=== PATIENT | female | born 1980 | race Caucasian/White ===

== ENCOUNTER 2016-08-28 18:53 | Emergency (ER) | payer OTHER ==
--- NOTE | 2016-08-28 20:56 | ED NURSING NOTES ---
Clinical Report - Nurses [facility] [place] [address] 08/28/2016 18:53 Patient: LILLI VAZQUEZ TRIAGE Triage time 1950. Acuity: LEVEL 3. Chief Complaint: SKIN LESION. --20: Tj Bass R.N. 19:53 08/28/16. BP: 118/82. HR: 91. RR: 16. O2 saturation: 100%. Temp: 97.7 F. Pain level now 03/26. --20:01 Tj Bass R.N. Weight: 52.1 kg stated. Height/Length: 65 inches Per Patient. BMI: 19.1. --20:01 Tj Bass R.N. Medications Tramadol HCL Oral. --19:56 Tj Bass R.N. Allergies Sulfa Drugs. --19:56 Tj Bass R.N. History Arrived by private vehicle. Historian: patient. Unaccompanied. Location - neck and right leg. Onset. (about 1 weeks). It is described as painful. ( nausea with vomitting). 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 SOCIAL HX: Heavy tobacco smoker- 1 pack per day. History of heavy IV drug use: heroin. Recently used drugs days ago. FALL RISK ASSESSMENT: Fall risk assessment completed. No fall risk identified. NUTRITIONAL RISK ASSESSMENT: The nutritional risk assessment revealed no deficiencies. FUNCTIONAL ASSESSMENT: Functional assessment: no impairments noted. LEARNING NEEDS ASSESSMENT: The learning needs assessment revealed no barriers. SKIN INTEGRITY ASSESSMENT: Skin integrity risk assessment completed. No skin integrity risk identified. --20:01 Tj Bass R.N. Interventions ID band on patient. --20:01 Tj Bass R.N. PHYSICAL ASSESSMENT Ambulatory to room. GENERAL / NEURO / PSYCH: Alert. The patient does not appear to be in acute distress. Oriented X 4. HEENT: Pupils equal, round and reactive to light. Mucous membranes are pink. RESPIRATORY: Respirations not labored. Breath sounds within normal limits. CVS: Capillary refill less than 2 seconds. Pulses within normal limits. GI / : Abdomen nontender. SKIN: Skin is intact, warm, dry and non-tender. Normal skin turgor. No skin rash. --20:01 Tj Bass R.N. ( pt states she is in full heroine withdrawal at this time. pt further states she is homeless at this time.). --20:05 Tj Bass R.N. NURSING PROGRESS NOTES Patient gowned. Head of bed elevated. Reassurance given. Patient identifiers checked. Call light placed in reach. Bed placed in lowest position. Brakes of bed on. --20:02 Tj Bass R.N. 20:56 08/28/2016 Clindamycin PO 300 mg given. Allergies verified and confirmed 5 rights. --20:56 Tj Bass R.N. 20:56 08/28/2016 Phenergan (Promethazine HCl) PO 25 mg given. Allergies verified, confirmed 5 rights and sedative warning given to the patient. --20:56 Tj Bass R.N. 20:56 08/28/2016 Zofran ODT (Ondansetron) PO 4 mg given. Allergies verified and confirmed 5 rights. --20:57 Tj Bass R.N. DISPOSITION / DISCHARGE Departure time: 21:18. ( Pt stated that she [facility] not [facility] out the bugs in her neck and legs. Pt stated "I am sick of this shit, the bits are brown recluses. Pt refused vs. She was alert and oriented x 4.). Discharge instructions provided and reviewed with the patient. Reviewed warnings. Reviewed medication(s). Treatments reviewed. Patient verbalized understanding. Written instructions provided in Persian. The patient was discharged by the physician assistant quality manager. She was discharged home and unaccompanied at time of discharge. She left the Emergency Department ambulatory and via private vehicle. Patient driving. --21:18 Wallace Cevallos R.N. Departure time: 21:19. --21:19 Wallace Cevallos R.N. Locked/Released at 08/28/2016 21:20 by Wallace Cevallos R.N.
--- NOTE | 2016-08-28 20:56 | ED ORDER SUMMARY ---
..... Patient: LILLI VAZQUEZ OrderSheet [facility] VisitID: [id number] [place] [address] 36y, F Registration Date/Time: 08/28/2016 ORDER SHEET Weight: 52.1 kg (stated) Allergies: Sulfa Drugs GENERAL ORDERS: MEDICATION ORDERS: Zofran ODT PO 4 mg (NOW) (20:20 08/28/2016 EKoroleva P.A.-C) (20:57 MICHAELullard R.N.) Phenergan PO 25 mg (HIGH ALERT MEDICATION, NOW) (20:20 08/28/2016 EKoroleva P.A.-C) (20:56 JBhernandoard R.N.) Clindamycin PO 300 mg (NOW) (20:20 08/28/2016 EKoroleva P.A.-C) (20:56 JBullard R.N.) IV FLUIDS: ORDER SHEET NOTES: [Electronically signed by Wallace Cevallos R.N. (21:20 08/28/2016)] [Electronically signed by Ivana Hyatt PVinicioAVinicio-C (23:08/28/2016)] [Electronically locked/signed by Wallace Cevallos R.N. (21:20 08/28/2016)]
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
--- NOTE | 2016-08-28 20:56 | ED ORDER SUMMARY ---
..... Patient: LILLI VAZQUEZ OrderSheet [facility] VisitID: [id number] [place] [address] 36y, F Registration Date/Time: 08/28/2016 ORDER SHEET Weight: 52.1 kg (stated) Allergies: Sulfa Drugs GENERAL ORDERS: MEDICATION ORDERS: Zofran ODT PO 4 mg (NOW) (20:20 08/28/2016 EKoroleva P.A.-C) (20:57 MICHAELullard R.N.) Phenergan PO 25 mg (HIGH ALERT MEDICATION, NOW) (20:20 08/28/2016 EKoroleva P.A.-C) (20:56 JBhernandoard R.N.) Clindamycin PO 300 mg (NOW) (20:20 08/28/2016 EKoroleva P.A.-C) (20:56 JBullard R.N.) IV FLUIDS: ORDER SHEET NOTES: [Electronically signed by Wallace Cevallos R.N. (21:20 08/28/2016)] [Electronically signed by Ivana Hyatt PVinicioAVinicio-C (23:08/28/2016)] [Electronically locked/signed by Wallace Cevallos R.N. (21:20 08/28/2016)]
--- NOTE | 2016-08-28 20:56 | ED NURSING NOTES ---
Clinical Report - Nurses [facility] [place] [address] 08/28/2016 18:53 Patient: LILIL VAZQUEZ TRIAGE Triage time 1949. Acuity: LEVEL 3. Chief Complaint: SKIN LESION. --20: Tj Bass R.N. 19:53 08/28/16. BP: 118/82. HR: 91. RR: 16. O2 saturation: 100%. Temp: 97.7 F. Pain level now 03/26. --20:01 Tj Bass R.N. Weight: 52.1 kg stated. Height/Length: 65 inches Per Patient. BMI: 19.1. --20:01 Tj Bass R.N. Medications Tramadol HCL Oral. --19:56 Tj Bass R.N. Allergies Sulfa Drugs. --19:56 Tj Bass R.N. History Arrived by private vehicle. Historian: patient. Unaccompanied. Location - neck and right leg. Onset. (about 1 weeks). It is described as painful. ( nausea with vomitting). 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 SOCIAL HX: Heavy tobacco smoker- 1 pack per day. History of heavy IV drug use: heroin. Recently used drugs days ago. FALL RISK ASSESSMENT: Fall risk assessment completed. No fall risk identified. NUTRITIONAL RISK ASSESSMENT: The nutritional risk assessment revealed no deficiencies. FUNCTIONAL ASSESSMENT: Functional assessment: no impairments noted. LEARNING NEEDS ASSESSMENT: The learning needs assessment revealed no barriers. SKIN INTEGRITY ASSESSMENT: Skin integrity risk assessment completed. No skin integrity risk identified. --20:01 Tj Bass R.N. Interventions ID band on patient. --20:01 Tj Bass R.N. PHYSICAL ASSESSMENT Ambulatory to room. GENERAL / NEURO / PSYCH: Alert. The patient does not appear to be in acute distress. Oriented X 4. HEENT: Pupils equal, round and reactive to light. Mucous membranes are pink. RESPIRATORY: Respirations not labored. Breath sounds within normal limits. CVS: Capillary refill less than 2 seconds. Pulses within normal limits. GI / : Abdomen nontender. SKIN: Skin is intact, warm, dry and non-tender. Normal skin turgor. No skin rash. --20:01 Tj Bass R.N. ( pt states she is in full heroine withdrawal at this time. pt further states she is homeless at this time.). --20:05 Tj Bass R.N. NURSING PROGRESS NOTES Patient gowned. Head of bed elevated. Reassurance given. Patient identifiers checked. Call light placed in reach. Bed placed in lowest position. Brakes of bed on. --20:02 Tj Bass R.N. 20:56 08/28/2016 Clindamycin PO 300 mg given. Allergies verified and confirmed 5 rights. --20:56 Tj Bass R.N. 20:56 08/28/2016 Phenergan (Promethazine HCl) PO 25 mg given. Allergies verified, confirmed 5 rights and sedative warning given to the patient. --20:56 Tj Bass R.N. 20:56 08/28/2016 Zofran ODT (Ondansetron) PO 4 mg given. Allergies verified and confirmed 5 rights. --20:57 Tj Bass R.N. DISPOSITION / DISCHARGE Departure time: 21:18. ( Pt stated that she is going to [facility] for not taking out the bugs in her neck and legs. Pt stated "I am sick of this shit, the bits are brown recluses. Pt refused vs. She was alert and oriented x 4.). Discharge instructions provided and reviewed with the patient. Reviewed warnings. Reviewed medication(s). Treatments reviewed. Patient verbalized understanding. Written instructions provided in French. The patient was discharged by the physician speech language pathology assistant. She was discharged home and unaccompanied at time of discharge. She left the Emergency Department ambulatory and via private vehicle. Patient driving. --21:18 Wallace Cevallos R.N. Departure time: 21:19. --21:19 Wallace Cevallos R.N. Locked/Released at 08/28/2016 21:20 by Wallace Cevallos R.N.
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
--- NOTE | 2016-08-28 23:01 | ED DISCHARGE INSTRUCTIONS ---
Patient: LILLI VAZQUEZ General Instructions [facility] VisitID: [id number] [place] [address] 36y, F Registration Date/Time: 08/28/2016 Cellulitis of the right lower leg and left lower leg. INSTRUCTIONS Prescription Medications: Zofran (orally disintegrating tablets) 4 mg: take 1 orally every 6 hours for 3 days as needed for nausea. Dispense ten (10). No refill. Substitution is permissible. Phenergan 12.5 mg tablets: take 1 orally every 6 hours as needed for nausea or vomiting. Dispense ten (10). No refill. Substitution is permissible Clindamycin 300 mg: take 1 capsule orally every 6 hours for 7 days. No refills. Bactroban 2% ointment: apply small amount to affected area three times daily for 5 days. Dispense twenty-two (22) grams. No refills. Substitution is permissible. Follow-up: Follow up with your doctor as needed. ADDITIONAL INFORMATION Cellulitis You have an infection of the skin known as cellulitis. This usually starts with a scrape, cut, insect bite, blister or other opening in the skin which becomes infected. This is a serious condition. It must be watched closely to be sure the infection is not spreading. With antibiotic treatment, the size of the red area will gradually shrink in size until the skin returns to normal. This will take 7-10 days. The red area should never increase in size once the antibiotic medicine has been started. Occasionally, an infection will be resistant to one antibiotic and another one will have to be used. Home Care: 1) Limit the use of the affected part, since excess movement can cause the infection to spread. 2) If the infection is on your leg, walk as little as possible during the first few days of the treatment. Keep your leg elevated while sitting. This will reduce swelling. 3) Take all of the antibiotic medicine exactly as directed until it is gone. Be careful not to miss any doses, especially during the first seven days. Follow Up with your doctor or this facility as directed. Check the infected area daily for the warning signs listed below. Get Prompt Medical Attention if any of the following occur: -- Spreading area of redness -- Increasing swelling or pain -- Appearance of pus or drainage -- Fever over 100.4 F (38.0 C) oral, or over 101.4 F (38.6 C) rectal, after two days on antibiotics Staph Infection (MRSA) "Staph" is the short name for the common bacteria called "staphylococcus aureus". Staph bacteria are often present on the skin without causing an infection. If it gets under the skin an infection occurs. This causes redness, tenderness, swelling and sometimes fluid drainage. MRSA stands for "Methicillin-Resistant Staph Aureus". Unlike a common staph infection, MRSA bacteria are resistant to the usual antibiotics and harder to treat. Also, MRSA is more toxic than common staph bacteria. It can spread quickly throughout the body and cause a life-threatening illness. MRSA is spread to others by direct physical contact with the bacteria. MRSA can also be transmitted from items contaminated by a person who has the bacteria, such as bandages, towels, bed sheets, or sports equipment. It is not spread through the air. Once you have a MRSA skin infection, you are at risk of having it recur in the future. If MRSA infection is suspected, the doctor may take a wound culture to confirm the diagnosis. Any abscess will be drained. One or sometimes two antibiotics that work against MRSA will be prescribed. Home Care: 1) Take any antibiotics prescribed exactly as directed until they are gone. 2) Follow the same washing procedures as outlined for Household Members below. 3) Keep draining wounds covered with clean, dry bandages. Change dressings as they become soiled. 4) You and those in contact with you should wash their hands frequently with soap and warm water or use an alcohol-based hand ditching machine operator. Do this after each time you change the bandage or touch the wound. 5) Avoid sharing personal items such as towels, washcloths, razors, clothing, or uniforms. Wash soiled sheets, towels or clothes in hot water with laundry detergent. Use an automatic clothes dryer set on high to kill any remaining bacteria. 6) Remove any artificial nails and nail togolese. 7) If you use a gym, wipe down equipment before and after each use. Treatment Of Household Members If you have been diagnosed with possible MRSA infection, those living with you are at higher risk of carrying the bacteria on their skin or in their nose, even if there is no sign of infection. Bacteria must be removed from the skin of all household members (including you) at the same time, so that it is not passed back and forth. Advise them to remove the bacteria as follows: Wash your whole body (scalp to toes) daily for five days with Hibiclens (chlorhexidine). Scrub fingernails with a brush for one minute twice a day. If any skin infections are present (boils, abscess, infected cut) these must be treated by a doctor. Washing alone will not treat a MRSA infection. Clean counter tops and children's toys; do not share personal items such as toothbrush and razors. It is okay to share glasses, plates, utensils. If antibiotic ointment was prescribed use it as directed. Follow Up with your doctor or as advised by our staff. If a wound culture was taken, call as directed in two days to obtain the results. If the culture result is positive for MRSA, tell medical personnel in the future that you were treated for this type of infection. Get Prompt Medical Attention if any of the following occur: -- Increasing redness, swelling or pain -- Red streaks in the skin around the wound -- Weakness or dizziness -- New appearance of pus or drainage from the wound -- New fever over 100.4 F (38.0 C) Ondansetron Hydrochloride Oral tablet What is this medicine? ONDANSETRON (on MIRA se jami) is used to treat nausea and vomiting caused by chemotherapy. It is also used to prevent or treat nausea and vomiting after surgery. How should I use this medicine? Take this medicine by mouth with a glass of water. Follow the directions on your prescription label. Take your doses at regular intervals. Do not take your medicine more often than directed. Talk to your traffic signal supervisor maintenance regarding the use of this medicine in children. Special care may be needed. What side effects may I notice from receiving this medicine? Side effects that you should report to your doctor or health regular senior care provider as soon as possible: allergic reactions like skin rash, itching or hives, swelling of the face, lips or tongue breathing problems dizziness fast or irregular heartbeat feeling faint or lightheaded, falls fever and chills swelling of the hands or feet tightness in the chest Side effects that usually do not require medical attention (report to your doctor or health regular senior care provider if they continue or are bothersome): constipation or diarrhea headache What may interact with this medicine? Do not take this medicine with any of the following medications: -apomorphine -cisapride -dofetilide -dronedarone -pimozide -thioridazine -ziprasidone This medicine may also interact with the following medications: -carbamazepine -phenytoin -rifampicin -tramadol -other medicines that prolong the QT interval (cause an abnormal heart rhythm) What if I miss a dose? If you miss a dose, take it as soon as you can. If it is almost time for your next dose, take only that dose. Do not take double or extra doses. Where should I keep my medicine? Keep out of the reach of children. Store between 2 and 30 degrees C (36 and 86 degrees F). Throw away any unused medicine after the expiration date. What should I tell my health care provider before I take this medicine? They need to know if you have any of these conditions: heart disease history of irregular heartbeat liver disease low levels of magnesium or potassium in the blood an unusual or allergic reaction to ondansetron, granisetron, other medicines, foods, dyes, or preservatives or trying to get breast-feeding What should I watch for while using this medicine? Check with your doctor or health regular senior care provider right away if you have any sign of an allergic reaction. You have been given the following additional information: Cellulitis MRSA Skin Infection, Suspected Or Confirmed Ondansetron Hydrochloride Oral tablet (Electronically signed by Ivana Hyatt P.A.-C 08/28/2016 23:01)
--- NOTE | 2016-08-28 23:01 | ED DISCHARGE INSTRUCTIONS ---
Patient: LILLI VAZQUEZ General Instructions [facility] VisitID: [id number] [place] [address] 36y, F Registration Date/Time: 08/28/2016 Cellulitis of the right lower leg and left lower leg. INSTRUCTIONS Prescription Medications: Zofran (orally disintegrating tablets) 4 mg: take 1 orally every 6 hours for 3 days as needed for nausea. Dispense ten (10). No refill. Substitution is permissible. Phenergan 12.5 mg tablets: take 1 orally every 6 hours as needed for nausea or vomiting. Dispense ten (10). No refill. Substitution is permissible Clindamycin 300 mg: take 1 capsule orally every 6 hours for 7 days. No refills. Bactroban 2% ointment: apply small amount to affected area three times daily for 5 days. Dispense twenty-two (22) grams. No refills. Substitution is permissible. Follow-up: Follow up with your doctor as needed. ADDITIONAL INFORMATION Cellulitis You have an infection of the skin known as cellulitis. This usually starts with a scrape, cut, insect bite, blister or other opening in the skin which becomes infected. This is a serious condition. It must be watched closely to be sure the infection is not spreading. With antibiotic treatment, the size of the red area will gradually shrink in size until the skin returns to normal. This will take 7-10 days. The red area should never increase in size once the antibiotic medicine has been started. Occasionally, an infection will be resistant to one antibiotic and another one will have to be used. Home Care: 1) Limit the use of the affected part, since excess movement can cause the infection to spread. 2) If the infection is on your leg, walk as little as possible during the first few days of the treatment. Keep your leg elevated while sitting. This will reduce swelling. 3) Take all of the antibiotic medicine exactly as directed until it is gone. Be careful not to miss any doses, especially during the first seven days. Follow Up with your doctor or this facility as directed. Check the infected area daily for the warning signs listed below. Get Prompt Medical Attention if any of the following occur: -- Spreading area of redness -- Increasing swelling or pain -- Appearance of pus or drainage -- Fever over 100.4 F (38.0 C) oral, or over 101.4 F (38.6 C) rectal, after two days on antibiotics Staph Infection (MRSA) "Staph" is the short name for the common bacteria called "staphylococcus aureus". Staph bacteria are often present on the skin without causing an infection. If it gets under the skin an infection occurs. This causes redness, tenderness, swelling and sometimes fluid drainage. MRSA stands for "Methicillin-Resistant Staph Aureus". Unlike a common staph infection, MRSA bacteria are resistant to the usual antibiotics and harder to treat. Also, MRSA is more toxic than common staph bacteria. It can spread quickly throughout the body and cause a life-threatening illness. MRSA is spread to others by direct physical contact with the bacteria. MRSA can also be transmitted from items contaminated by a person who has the bacteria, such as bandages, towels, bed sheets, or sports equipment. It is not spread through the air. Once you have a MRSA skin infection, you are at risk of having it recur in the future. If MRSA infection is suspected, the doctor may take a wound culture to confirm the diagnosis. Any abscess will be drained. One or sometimes two antibiotics that work against MRSA will be prescribed. Home Care: 1) Take any antibiotics prescribed exactly as directed until they are gone. 2) Follow the same washing procedures as outlined for Household Members below. 3) Keep draining wounds covered with clean, dry bandages. Change dressings as they become soiled. 4) You and those in contact with you should wash their hands frequently with soap and warm water or use an alcohol-based hand oim consultant. Do this after each time you change the bandage or touch the wound. 5) Avoid sharing personal items such as towels, washcloths, razors, clothing, or uniforms. Wash soiled sheets, towels or clothes in hot water with laundry detergent. Use an automatic clothes dryer set on high to kill any remaining bacteria. 6) Remove any artificial nails and nail [place]. 7) If you use a gym, wipe down equipment before and after each use. Treatment Of Household Members If you have been diagnosed with possible MRSA infection, those living with you are at higher risk of carrying the bacteria on their skin or in their nose, even if there is no sign of infection. Bacteria must be removed from the skin of all household members (including you) at the same time, so that it is not passed back and forth. Advise them to remove the bacteria as follows: Wash your whole body (scalp to toes) daily for five days with Hibiclens (chlorhexidine). Scrub fingernails with a brush for one minute twice a day. If any skin infections are present (boils, abscess, infected cut) these must be treated by a doctor. Washing alone will not treat a MRSA infection. Clean counter tops and children's toys; do not share personal items such as toothbrush and razors. It is okay to share glasses, plates, utensils. If antibiotic ointment was prescribed use it as directed. Follow Up with your doctor or as advised by our staff. If a wound culture was taken, call as directed in two days to obtain the results. If the culture result is positive for MRSA, tell medical personnel in the future that you were treated for this type of infection. Get Prompt Medical Attention if any of the following occur: -- Increasing redness, swelling or pain -- Red streaks in the skin around the wound -- Weakness or dizziness -- New appearance of pus or drainage from the wound -- New fever over 100.4 F (38.0 C) Ondansetron Hydrochloride Oral tablet What is this medicine? ONDANSETRON (on MIRA se jami) is used to treat nausea and vomiting caused by chemotherapy. It is also used to prevent or treat nausea and vomiting after surgery. How should I use this medicine? Take this medicine by mouth with a glass of water. Follow the directions on your prescription label. Take your doses at regular intervals. Do not take your medicine more often than directed. Talk to your forestry adviser regarding the use of this medicine in children. Special care may be needed. What side effects may I notice from receiving this medicine? Side effects that you should report to your doctor or health live in caregiver as soon as possible: allergic reactions like skin rash, itching or hives, swelling of the face, lips or tongue breathing problems dizziness fast or irregular heartbeat feeling faint or lightheaded, falls fever and chills swelling of the hands or feet tightness in the chest Side effects that usually do not require medical attention (report to your doctor or health live in caregiver if they continue or are bothersome): constipation or diarrhea headache What may interact with this medicine? Do not take this medicine with any of the following medications: -apomorphine -cisapride -dofetilide -dronedarone -pimozide -thioridazine -ziprasidone This medicine may also interact with the following medications: -carbamazepine -phenytoin -rifampicin -tramadol -other medicines that prolong the QT interval (cause an abnormal heart rhythm) What if I miss a dose? If you miss a dose, take it as soon as you can. If it is almost time for your next dose, take only that dose. Do not take double or extra doses. Where should I keep my medicine? Keep out of the reach of children. Store between 2 and 30 degrees C (36 and 86 degrees F). Throw away any unused medicine after the expiration date. What should I tell my health care provider before I take this medicine? They need to know if you have any of these conditions: heart disease history of irregular heartbeat liver disease low levels of magnesium or potassium in the blood an unusual or allergic reaction to ondansetron, granisetron, other medicines, foods, dyes, or preservatives or trying to get breast-feeding What should I watch for while using this medicine? Check with your doctor or health live in caregiver right away if you have any sign of an allergic reaction. You have been given the following additional information: Cellulitis MRSA Skin Infection, Suspected Or Confirmed Ondansetron Hydrochloride Oral tablet (Electronically signed by Ivana Hyatt P.A.-C 08/28/2016 23:01)
--- NOTE | 2016-08-28 23:02 | ED MAR SUMMARY ---
..... Medication Administration Record [facility] [address] [place] [address] Patient: LILLI VAZQUEZ Visit ID: [id number] 36y, F Weight: 52.1 kg Height/Length: 65 in BMI: 19.1 ALLERGIES: Sulfa Drugs Given 20:08/28/2016 Tj Bass R.N. Medication Administered: ZOFRAN ODT [PO] (ONDANSETRON), Dose: 4 mg PO. Medication Ordered: Zofran ODT PO 4 mg (NOW). Given 20:08/28/2016 Tj Bass R.N. Medication Administered: PHENERGAN [PO] (PROMETHAZINE HCL), Dose: 25 mg PO. Medication Ordered: Phenergan PO 25 mg (HIGH ALERT MEDICATION, NOW). Given 20:08/28/2016 Tj Bass R.N. Medication Administered: CLINDAMYCIN [PO], Dose: 300 mg PO. Medication Ordered: Clindamycin PO 300 mg (NOW).
--- NOTE | 2016-08-28 23:02 | ED MAR SUMMARY ---
..... Medication Administration Record [facility] [address] [place] [address] Patient: LILLI VAZQUEZ Visit ID: [id number] 36y, F Weight: 52.1 kg Height/Length: 65 in BMI: 19.1 ALLERGIES: Sulfa Drugs Given 20:08/28/2016 Tj Bass R.N. Medication Administered: ZOFRAN ODT [PO] (ONDANSETRON), Dose: 4 mg PO. Medication Ordered: Zofran ODT PO 4 mg (NOW). Given 20:08/28/2016 Tj Bass R.N. Medication Administered: PHENERGAN [PO] (PROMETHAZINE HCL), Dose: 25 mg PO. Medication Ordered: Phenergan PO 25 mg (HIGH ALERT MEDICATION, NOW). Given 20:08/28/2016 Tj Bass R.N. Medication Administered: CLINDAMYCIN [PO], Dose: 300 mg PO. Medication Ordered: Clindamycin PO 300 mg (NOW).
--- NOTE | 2016-08-28 23:02 | ED MED RECONCILIATION SUMMARY ---
Patient: LILLI VAZQUEZ Medication Reconciliation Report [facility] VisitID: [id number] [place] [address] 36y, F Registration Date/Time: 08/28/2016 Weight: 52.1 kg Height/Length: 65 in. BMI: 19.1 ALLERGIES: Sulfa Drugs The patient's Home Medications are listed below: THE FOLLOWING MEDICATIONS NEED TO BE RECONCILED: Tramadol HCL Oral The source(s) of the original Home Medication information: Not obtained. The following Medications were given to the patient in the Emergency Department: Clindamycin [PO] PO 300 mg, administered: 08/28/2016 8:56:00 PM Phenergan [PO] PO 25 mg, administered: 08/28/2016 8:56:00 PM Zofran ODT [PO] PO 4 mg, administered: 08/28/2016 8:56:00 PM The following Medications were prescribed to the patient: Zofran (orally disintegrating tablets) 4 mg: take 1 orally every 6 hours for 3 days as needed for nausea. Dispense ten (10). No refill. Substitution is permissible. -- Ivana Hyatt, P.A.-C Phenergan 12.5 mg tablets: take 1 orally every 6 hours as needed for nausea or vomiting. Dispense ten (10). No refill. Substitution is permissible -- Ivana Hyatt, P.A.-C Clindamycin 300 mg: take 1 capsule orally every 6 hours for 7 days. No refills. -- Ivana Hyatt, P.A.-C Bactroban 2% ointment: apply small amount to affected area three times daily for 5 days. Dispense twenty-two (22) grams. No refills. Substitution is permissible. -- Ivana Hyatt, P.A.-C
--- NOTE | 2016-08-28 23:02 | ED MED RECONCILIATION SUMMARY ---
Patient: LILLI VAZQUEZ Medication Reconciliation Report [facility] VisitID: [id number] [place] [address] 36y, F Registration Date/Time: 08/28/2016 Weight: 52.1 kg Height/Length: 65 in. BMI: 19.1 ALLERGIES: Sulfa Drugs The patient's Home Medications are listed below: THE FOLLOWING MEDICATIONS NEED TO BE RECONCILED: Tramadol HCL Oral The source(s) of the original Home Medication information: Not obtained. The following Medications were given to the patient in the Emergency Department: Clindamycin [PO] PO 300 mg, administered: 08/28/2016 8:56:00 PM Phenergan [PO] PO 25 mg, administered: 08/28/2016 8:56:00 PM Zofran ODT [PO] PO 4 mg, administered: 08/28/2016 8:56:00 PM The following Medications were prescribed to the patient: Zofran (orally disintegrating tablets) 4 mg: take 1 orally every 6 hours for 3 days as needed for nausea. Dispense ten (10). No refill. Substitution is permissible. -- Ivana Hyatt, P.A.-C Phenergan 12.5 mg tablets: take 1 orally every 6 hours as needed for nausea or vomiting. Dispense ten (10). No refill. Substitution is permissible -- Ivana Hyatt, P.A.-C Clindamycin 300 mg: take 1 capsule orally every 6 hours for 7 days. No refills. -- Ivana Hyatt, P.A.-C Bactroban 2% ointment: apply small amount to affected area three times daily for 5 days. Dispense twenty-two (22) grams. No refills. Substitution is permissible. -- Ivana Hyatt, P.A.-C
== END 2016-08-28 21:14 | disposition home or self-care (01) ==
LOC: ED SRH 18:53
DX: L03.115 Cellulitis of right lower limb (principal); L03.116 Cellulitis of left lower limb; F31.9 Bipolar disorder, unspecified; I10 Essential (primary) hypertension; F17.290 Nicotine dependence, other tobacco product, uncomplicated; Z88.2 Allergy status to sulfonamides

== ENCOUNTER 2016-10-01 18:12 | Emergency (ER) | payer OTHER ==
--- NOTE | 2016-10-01 19:54 | DIAGNOSTIC IMAGING REPORT ---
PROCEDURE: XR ANKLE 3 OR 4 VIEWS - RIGHT INDICATION: TRAUMA/INJURY TECHNIQUE: Four views. COMPARISON: None. FINDINGS: There is moderate soft tissue swelling over lateral malleolus. There is 4 mm avulsion fracture of the lateral talus. The rest of the osseous structures and joint spaces are normal. IMPRESSION: 1. There is a mildly distracted 4 mm avulsion fracture of the lateral talus. 2. Associated moderate soft tissue swelling.
--- NOTE | 2016-10-01 20:00 | DIAGNOSTIC IMAGING REPORT ---
PROCEDURE: XR SHOULDER 2 OR MORE VW-RIGHT INDICATION: TRAUMA/INJURY TECHNIQUE: Three views. COMPARISON: None. FINDINGS: Osseous structures and joint spaces are normal. IMPRESSION: 1. Normal right shoulder.
--- NOTE | 2016-10-01 20:00 | DIAGNOSTIC IMAGING REPORT ---
PROCEDURE: XR HIP 2VW W W/O AP PELVIS-RT INDICATION: TRAUMA/INJURY TECHNIQUE: AP view of the pelvis and hips with lateral view of the right hip. COMPARISON: None. FINDINGS: RIGHT HIP: Osseous structures and joint spaces are normal. PELVIS: Osseous pelvis is normal. T-shaped IUD overlying the pelvis. IMPRESSION: 1. Negative pelvis and right hip.
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
--- NOTE | 2016-10-01 20:11 | ED ORDER SUMMARY ---
..... Patient: LILLI VAZQUEZ OrderSheet [facility] VisitID: [id number] [address] [place] [address] 36y, F Registration Date/Time: 10/01/2016 ORDER SHEET Weight: 54.8 kg (stated) Allergies: Sulfa Drugs GENERAL ORDERS: Ankle 3 or 4V Right Urgent (18:55 10/01/2016 HBivens A.R.N.P.) (Ack 18:56 LNations ER Tech1) (19:15 EHassan R.N.) Hip 2V Right w AP Pelvis Urgent (18:55 10/01/2016 HBivens A.R.N.P.) (Ack 18:56 LNations ER Tech1) (19:15 EHassan R.N.) Shoulder 2V or more Right Urgent (18:55 10/01/2016 HBivens A.R.N.P.) (Ack 18:56 LNations ER Tech1) (19:15 EHassan R.N.) POC - Urine hCG (19:02 10/01/2016 HBivens A.R.N.P.) (19:11 EHassan R.N.) Orthopedic Boot (20:11 10/01/2016 HBivens A.R.N.P.) (20:35 IJurca ER Tech1) MEDICATION ORDERS: Hydrocodone-APAP PO 5/325 mg (NOW, HIGH ALERT MEDICATION) (20:12 10/01/2016 HBivens A.R.N.P.) (20:47 EHassan R.N.) IV FLUIDS: ORDER SHEET NOTES: [Electronically signed by Katja Dahl R.N. (20:49 10/01/2016)] [Electronically signed by Whit Gibson A.R.N.P. (21:49 10/01/2016)] [Electronically locked/signed by Katja Dahl R.N. (20:49 10/01/2016)]
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
--- NOTE | 2016-10-01 20:11 | ED ORDER SUMMARY ---
..... Patient: LILLI VAZQUEZ OrderSheet [facility] VisitID: [id number] [address] [place] [address] 36y, F Registration Date/Time: 10/01/2016 ORDER SHEET Weight: 54.8 kg (stated) Allergies: Sulfa Drugs GENERAL ORDERS: Ankle 3 or 4V Right Urgent (18:55 10/01/2016 HBivens A.R.N.P.) (Ack 18:56 LNations ER Tech1) (19:15 EHassan R.N.) Hip 2V Right w AP Pelvis Urgent (18:55 10/01/2016 HBivens A.R.N.P.) (Ack 18:56 LNations ER Tech1) (19:15 EHassan R.N.) Shoulder 2V or more Right Urgent (18:55 10/01/2016 HBivens A.R.N.P.) (Ack 18:56 LNations ER Tech1) (19:15 EHassan R.N.) POC - Urine hCG (19:02 10/01/2016 HBivens A.R.N.P.) (19:11 EHassan R.N.) Orthopedic Boot (20:11 10/01/2016 HBivens A.R.N.P.) (20:35 IJurca ER Tech1) MEDICATION ORDERS: Hydrocodone-APAP PO 5/325 mg (NOW, HIGH ALERT MEDICATION) (20:12 10/01/2016 HBivens A.R.N.P.) (20:47 EHassan R.N.) IV FLUIDS: ORDER SHEET NOTES: [Electronically signed by Katja Dahl R.N. (20:49 10/01/2016)] [Electronically signed by Whit Gibson A.R.N.P. (21:49 10/01/2016)] [Electronically locked/signed by Katja Dahl R.N. (20:49 10/01/2016)]
--- NOTE | 2016-10-01 21:49 | ED DISCHARGE INSTRUCTIONS ---
Patient: LILLI VAZQUEZ General Instructions [facility] VisitID: [id number] [place] [address] 36y, F Registration Date/Time: 10/01/2016 Closed nondisplaced fracture of the head of the right talus. No angulated fracture of the foot. Multiple contusions to the right hip and right ankle.No hematoma or skin abrasion. Fall from stairs and on same level by slipping. INSTRUCTIONS Wear boot orthosis until released. Warnings: GENERAL WARNINGS: Return or contact your physician immediately if your condition worsens or changes unexpectedly, if not improving as expected, or if other problems arise. SPECIFICALLY, return if you develop numbness or incontinence of feces (loss of bowel control) or urine (loss of bladder control). trouble breathing, chest pain. Prescription Medications: Naproxen 500 mg tablets: take 1 orally every 12 hours as needed for pain. Dispense twenty (20). No refills. Pelham 5 mg / 325 mg tablets: take 1 orally every 6 hours as needed for pain. Dispense five (5). Follow-up: Follow up with your doctor in about three days even if well. Call for an appointment. Summary of care provided to patient. Understanding of the discharge instructions verbalized by patient. Follow-up with: Kaiden Gunderson MD, Orthopedic Surgeon, , [address], , [place], [id number] Follow up in three days even if well. Call for an appointment. Summary of care provided to patient. ADDITIONAL INFORMATION Mechanical Fall You have had a fall today. It appears that the cause is mechanical. That means that you slipped, tripped or lost your balance. If your fall had been due to fainting or a seizure, further tests would be required. Home Care: Rest today and resume your normal activities when you are feeling back to normal. If you were injured during the fall, follow the advice from your doctor regarding care of your injury. You may use acetaminophen (Tylenol) or ibuprofen (Motrin, Advil) to control pain, unless another pain medicine was prescribed. [NOTE: If you have chronic liver or kidney disease or ever had a stomach ulcer or GI bleeding, talk with your doctor before using these medicines.] Fall Prevention: Was there anything that caused your fall that can be fixed, removed, or replaced? Make your home safe by keeping walkways clear of objects you may trip over. Use non-slip pads under rugs. Do not walk in poorly lit areas. Do not stand on chairs or wobbly ladders. Use caution when reaching overhead or looking upward. This position can cause a loss of balance. Be sure your shoes fit properly, have non-slip bottoms and are in good condition. Be cautious when going up and down curbs, and walking on uneven sidewalks. If your balance is poor, consider using a cane or walker. Stay as active as you can. Balance, flexibility, strength, and endurance all come from exercise. They all play a role in preventing falls. Follow Up with your doctor or as advised by our staff. Get Prompt Medical Attention if any of the following occur: Repeated mechanical falls, or unexplained falls Dizziness, fainting or seizure Severe headache Chest pain or shortness of breath Palpitations (very rapid or very slow or irregular heartbeat) Blood in vomit, stools (black or red color) Weakness of an arm or leg or one side of the face Difficulty with speech or vision Contusion,Soft Tissue You have a CONTUSION, which is a bruise with swelling and some bleeding under the skin. There are no broken bones. This injury takes a few days to a few weeks to heal. Home Care: 1) Keep the injured part elevated to reduce pain and swelling. This is especially important during the first 48 hours. 2) Make an ice pack (ice cubes in a plastic bag, wrapped in a towel) and apply for 20 minutes every 1-2 hours the first day. Continue this 3-4 times a day until the pain and swelling goes away. 3) You may use acetaminophen (Tylenol) or ibuprofen (Motrin, Advil) to control pain, unless another pain medicine was prescribed. [ NOTE : If you have chronic liver or kidney disease or ever had a stomach ulcer or GI bleeding, talk with your doctor before using these medicines.] Follow Up with your doctor or this facility if you are not improving within the next THREE days. [NOTE: If X-rays were taken, they will be reviewed by a radiologist. You will be notified of any new findings that may affect your care.] Get Prompt Medical Attention if any of the following occur: -- Pain or swelling increases -- Injured arm or leg becomes cold, blue, numb or tingly -- Redness, warmth or drainage from the skin Contusion:Lower Extremity You have a CONTUSION of your LOWER extremity (leg, knee, ankle, foot, or toes). This causes local pain, swelling and sometimes bruising. There are no broken bones. This injury may take from a few days to a few weeks to heal. Home Care: 1) Keep your leg elevated to reduce pain and swelling. When sleeping, place a pillow under the injured leg. When sitting, support the injured leg so it is level with your waist. This is very important during the first 48 hours. 2) If CRUTCHES have been advised, do not bear full weight on the injured leg until you can do so without pain. You may return to sports when you are able to hop and run on the injured leg without pain. 3) Apply an ice pack (ice cubes in a plastic bag, wrapped in a towel) over the injured area for 20 minutes every 1-2 hours the first day for pain relief. Continue this 3-4 times a day until the pain and swelling goes away. 4) You may use acetaminophen (Tylenol) or ibuprofen (Motrin, Advil) to control pain, unless another pain medicine was prescribed. [ NOTE : If you have chronic liver or kidney disease or ever had a stomach ulcer or GI bleeding, talk with your doctor before using these medicines.] Follow Up with your doctor or this facility if you are not starting to improve within the next THREE days. [NOTE: If X-rays were taken, they will be reviewed by a radiologist. You will be notified of any new findings that may affect your care.] Get Prompt Medical Attention if any of the following occur: -- Pain or swelling increases -- Toes become cold, blue, numb or tingly -- Redness, warmth or drainage from the skin Hip Contusion You have a contusion of the hip. This is a bruise with swelling and some bleeding under the skin. There are no fracture (broken bone) seen on the x-ray. This injury takes a few days to a few weeks to heal. Home Care If walking causes pain, use crutches or a walker until you can walk without pain. These items can be rented at most pharmacies and orthopedic supply stores. Apply an ice pack (ice cubes in a plastic bag, wrapped in a towel) over the injured area for 20 minutes every 1-2 hours the firstday. You should continue with ice packs 3-4 times a day for the next two days. Continue the use of ice packs for relief of pain and swelling as needed. You may use acetaminophen (Tylenol) or ibuprofen (Motrin, Advil) to control pain, unless another pain medicine was prescribed. [NOTE: If you have chronic liver or kidney disease or ever had a stomach ulcer or GI bleeding, talk with your doctor before using these medicines.] If you are not able to get to the bathroom easily or take care of your meal preparation, home health care may be available to provide in-home nursing services. Check with your doctor, the hospital's social service department or through private nursing agencies to see if your insurance will cover this kind of care. Follow Up Follow up with your doctor or as advised by our staff if your symptoms do not begin to improve after one week. A repeat x-ray or a CT-scan may be needed to check again for a fracture. [NOTE: If X-rays were taken, they will be reviewed by a radiologist. You will be notified of any new findings that may affect your care.] Get Prompt Medical Attention Get prompt medical attention if any of the following occur: Increased swelling or increased bruising Pain becomes worse Decreased ability to bear weight on the injured side Swelling or pain below your knee Chest pain or shortness of breath Fracture:Foot You have a fracture (break) of one of the bones in your foot. This will cause pain, swelling and sometimes bruising. It will take about 4-6 weeks to heal. A foot fracture may be treated with a special shoe, splint, cast or boot. Home Care: You may be given a splint, cast, shoe or boot to prevent movement at the injury. Unless you were told otherwise, use crutches or a walker and do not bear weight on the injured foot until cleared by your doctor to do so. (Crutches and walkers can be rented at many pharmacies and surgical/orthopedic supply stores). Do not put weight on a splint; it will break. Keep your leg elevated to reduce pain and swelling. When sleeping, place a pillow under the injured leg. When sitting, support the injured leg so it is level with your waist. This is very important during the first 48 hours. Apply an ice pack (ice cubes in a plastic bag, wrapped in a towel) over the injured area for 20 minutes every 1-2 hours the first day. You can place the ice pack directly over the splint/cast. Unless told otherwise, you can open the boot or shoe to apply ice. Continue with ice packs 3-4 times a day for the next two days, then as needed for the relief of pain and swelling. Keep the splint/cast/boot/shoe dry. When bathing, protect it with a large plastic bag, rubber-banded at the top end. If a fiberglass splint/cast or boot gets wet, you can dry it with a hair-dryer. Unless told otherwise, you can remove a boot or shoe to bathe. You may use acetaminophen (Tylenol) or ibuprofen (Motrin, Advil) to control pain, unless another pain medicine was prescribed. [NOTE: If you have chronic liver or kidney disease or ever had a stomach ulcer or GI bleeding, talk with your doctor before using these medicines.] Follow Up with your doctor within one week, or as advised by our staff, to be sure the bone is healing properly. If you were given a splint, it may be changed to a cast or boot at your follow-up visit.[NOTE: A radiologist will review any X-rays that were taken. We will notify you of any new findings that may affect your care.] Get Prompt Medical Attention if any of the following occur: The plaster cast or splint becomes wet or soft The fiberglass cast or splint remains wet for more than 24 hours Increased tightness or pain under the cast or splint Toes become swollen, cold, blue, numb or tingly Aircast Sp-Walker Boot Traditional splints and casts for the foot and ankle protect the injury by preventing movement at the joints. However, many injuries heal better and faster if the injured joint can be moved, while protected at the same time. This is the reason for using an Aircast Walker boot. This is a short boot that provides support and protection to the foot and ankle while allowing you to walk. It contains padded air cells that provide compression and help circulation. It is used for both foot and ankle injuries - both sprains and minor fractures. Ankle and foot sprains can take 4-6 weeks to heal. Persons with severe injuries or over age 60 may require more time to heal. During that time, you are prone to re-injury by suddenly twisting your foot or ankle again while the ligaments are still weak. When treating a sprain, the [employer] Walker boot should be worn whenever walking for at least four weeks, or as long as you continue to have ankle pain. Talk to your doctor for specific advice about the treatment of your condition. Air-Stirrup and SP-Walker are trademarks of [employer]. For more information about their products, see www.[employer]. Naproxen Sodium Oral tablet What is this medicine? NAPROXEN (na PROX en) is a non-steroidal anti-inflammatory drug (NSAID). It is used to reduce swelling and to treat pain. This medicine may be used for dental pain, headache, or painful monthly periods. It is also used for painful joint and muscular problems such as arthritis, tendinitis, bursitis, and gout. How should I use this medicine? Take this medicine by mouth with a glass of water. Follow the directions on the prescription label. Take it with food if your stomach gets upset. Try to not lie down for at least 10 minutes after you take it. Take your medicine at regular intervals. Do not take your medicine more often than directed. Long-term, continuous use may increase the risk of heart attack or stroke. A special MedGuide will be given to you by the pharmacist with each prescription and refill. Be sure to read this information carefully each time. Talk to your certified welding inspector regarding the use of this medicine in children. Special care may be needed. What side effects may I notice from receiving this medicine? Side effects that you should report to your doctor or health intensive care specialist as soon as possible: black or bloody stools, blood in the urine or vomit blurred vision chest pain difficulty breathing or wheezing nausea or vomiting severe stomach pain skin rash, skin redness, blistering or peeling skin, hives, or itching slurred speech or weakness on one side of the body swelling of eyelids, throat, lips unexplained weight gain or swelling unusually weak or tired yellowing of eyes or skin Side effects that usually do not require medical attention (report to your doctor or health intensive care specialist if they continue or are bothersome): constipation headache heartburn What may interact with this medicine? alcohol aspirin cidofovir diuretics lithium methotrexate other drugs for inflammation like ketorolac or prednisone pemetrexed probenecid warfarin What if I miss a dose? If you miss a dose, take it as soon as you can. If it is almost time for your next dose, take only that dose. Do not take double or extra doses. Where should I keep my medicine? Keep out of the reach of children. Store at room temperature between 15 and 30 degrees C (59 and 86 degrees F). Keep container tightly closed. Throw away any unused medicine after the expiration date. What should I tell my health care provider before I take this medicine? They need to know if you have any of these conditions: asthma cigarette smoker drink more than 3 alcohol containing drinks a day heart disease or circulation problems such as heart failure or leg edema (fluid retention) high blood pressure kidney disease liver disease stomach bleeding or ulcers an unusual or allergic reaction to naproxen, aspirin, other NSAIDs, other medicines, foods, dyes, or preservatives or trying to get breast-feeding What should I watch for while using this medicine? Tell your doctor or health intensive care specialist if your pain does not get better. Talk to your doctor before taking another medicine for pain. Do not treat yourself. This medicine does not prevent heart attack or stroke. In fact, this medicine may increase the chance of a heart attack or stroke. The chance may increase with longer use of this medicine and in people who have heart disease. If you take aspirin to prevent heart attack or stroke, talk with your doctor or health intensive care specialist. Do not take other medicines that contain aspirin, ibuprofen, or naproxen with this medicine. Side effects such as stomach upset, nausea, or ulcers may be more likely to occur. Many medicines available without a prescription should not be taken with this medicine. This medicine can cause ulcers and bleeding in the stomach and intestines at any time during treatment. Do not smoke cigarettes or drink alcohol. These increase irritation to your stomach and can make it more susceptible to damage from this medicine. Ulcers and bleeding can happen without warning symptoms and can cause . You may get drowsy or dizzy. Do not drive, use machinery, or do anything that needs mental alertness until you know how this medicine affects you. Do not stand or sit up quickly, especially if you are an older patient. This reduces the risk of dizzy or fainting spells. This medicine can cause you to bleed more easily. Try to avoid damage to your teeth and gums when you brush or floss your teeth. Hydrocodone Bitartrate, Acetaminophen Oral tablet What is this medicine? ACETAMINOPHEN; HYDROCODONE (a set a JAE catarino fen; arlen droe KOE done) is a pain reliever. It is used to treat mild to moderate pain. How should I use this medicine? Take this medicine by mouth. Swallow it with a full glass of water. Follow the directions on the prescription label. If the medicine upsets your stomach, take the medicine with food or milk. Do not take more than you are told to take. Talk to your certified welding inspector regarding the use of this medicine in children. This medicine is not approved for use in children. What side effects may I notice from receiving this medicine? Side effects that you should report to your doctor or health intensive care specialist as soon as possible: allergic reactions like skin rash, itching or hives, swelling of the face, lips, or tongue breathing problems confusion feeling faint or lightheaded, falls stomach pain yellowing of the eyes or skin Side effects that usually do not require medical attention (report to your doctor or health intensive care specialist if they continue or are bothersome): nausea, vomiting stomach upset What may interact with this medicine? alcohol antihistamines isoniazid medicines for depression, anxiety, or psychotic disturbances medicines for sleep muscle relaxants naltrexone narcotic medicines (opiates) for pain phenobarbital ritonavir tramadol What if I miss a dose? If you miss a dose, take it as soon as you can. If it is almost time for your next dose, take only that dose. Do not take double or extra doses. Where should I keep my medicine? Keep out of the reach of children. This medicine can be abused. Keep your medicine in a safe place to protect it from theft. Do not share this medicine with anyone. Selling or giving away this medicine is dangerous and against the law. Store at room temperature between 15 and 30 degrees C (59 and 86 degrees F). Protect from light. Keep container tightly closed. Throw away any unused medicine after the expiration date. Discard unused medicine and used packaging carefully. Pets and children can be harmed if they find used or lost packages. What should I tell my health care provider before I take this medicine? They need to know if you have any of these conditions: brain tumor Crohn's disease, inflammatory bowel disease, or ulcerative colitis drink more than 3 alcohol-containing drinks per day drug abuse or addiction head injury heart or circulation problems kidney disease or problems going to the bathroom liver disease lung disease, asthma, or breathing problems an unusual or allergic reaction to acetaminophen, hydrocodone, other opioid analgesics, other medicines, foods, dyes, or preservatives or trying to get breast-feeding What should I watch for while using this medicine? Tell your doctor or health intensive care specialist if your pain does not go away, if it gets worse, or if you have new or a different type of pain. You may develop tolerance to the medicine. Tolerance means that you will need a higher dose of the medicine for pain relief. Tolerance is normal and is expected if you take the medicine for a long time. Do not suddenly stop taking your medicine because you may develop a severe reaction. Your body becomes used to the medicine. This does NOT mean you are addicted. Addiction is a behavior related to getting and using a drug for a non-medical reason. If you have pain, you have a medical reason to take pain medicine. Your doctor will tell you how much medicine to take. If your doctor wants you to stop the medicine, the dose will be slowly lowered over time to avoid any side effects. You may get drowsy or dizzy when you first start taking the medicine or change doses. Do not drive, use machinery, or do anything that may be dangerous until you know how the medicine affects you. Stand or sit up slowly. There are different types of narcotic medicines (opiates) for pain. If you take more than one type at the same time, you may have more side effects. Give your health care provider a list of all medicines you use. Your doctor will tell you how much medicine to take. Do not take more medicine than directed. Call emergency for help if you have problems breathing. The medicine will cause constipation. Try to have a bowel movement at least every 2 to 3 days. If you do not have a bowel movement for 3 days, call your doctor or health intensive care specialist. Too much acetaminophen can be very dangerous. Do not take Tylenol (acetaminophen) or medicines that contain acetaminophen with this medicine. Many non-prescription medicines contain acetaminophen. Always read the labels carefully. You have been given the following additional information: Fall, Mechanical Contusion, Soft Tissue Contusion, Lower Extremity Hip Contusion Fracture, Foot Walker Boot Naproxen Sodium Oral tablet Hydrocodone Bitartrate, Acetaminophen Oral tablet (Electronically signed by Whit Gibson A.R.N.P. 10/01/2016 21:49)
--- NOTE | 2016-10-01 21:50 | ED MED RECONCILIATION SUMMARY ---
Patient: LILLI VAZQUEZ Medication Reconciliation Report [facility] VisitID: [id number] [address] [place] [address] 36y, F Registration Date/Time: 10/01/2016 Weight: 54.8 kg Height/Length: 65 in. BMI: 20.1 ALLERGIES: Sulfa Drugs The patient's Home Medications are listed below: THE FOLLOWING MEDICATIONS NEED TO BE RECONCILED: Tramadol HCL Oral The source(s) of the original Home Medication information: patient The following Medications were given to the patient in the Emergency Department: Hydrocodone-APAP [PO] PO 1 tab, administered: 10/01/2016 8:37:00 PM The following Medications were prescribed to the patient: Naproxen 500 mg tablets: take 1 orally every 12 hours as needed for pain. Dispense twenty (20). No refills. -- Whit Gibson, A.R.N.P. Carmen 5 mg / 325 mg tablets: take 1 orally every 6 hours as needed for pain. Dispense five (5). -- Whit Gibson, A.R.N.P.
--- NOTE | 2016-10-01 21:50 | ED MAR SUMMARY ---
..... Medication Administration Record [address] [place] [address] Patient: LILLI VAZQUEZ Visit ID: [id number] 36y, F Weight: 54.8 kg Height/Length: 65 in BMI: 20.1 ALLERGIES: Sulfa Drugs Given 20:37 10/01/2016 Katja Dahl R.N. Medication Administered: HYDROCODONE-APAP [PO] (HYDROCODONE-ACETAMINOPHEN), Dose: 1 tab 5/325 mg Tablets PO. Medication Ordered: Hydrocodone-APAP PO 5/325 mg (NOW, HIGH ALERT MEDICATION).
--- NOTE | 2016-10-01 21:50 | ED MAR SUMMARY ---
..... Medication Administration Record [address] [place] [address] Patient: LILLI VAZQUEZ Visit ID: [id number] 36y, F Weight: 54.8 kg Height/Length: 65 in BMI: 20.1 ALLERGIES: Sulfa Drugs Given 20:37 10/01/2016 Katja Dahl R.N. Medication Administered: HYDROCODONE-APAP [PO] (HYDROCODONE-ACETAMINOPHEN), Dose: 1 tab 5/325 mg Tablets PO. Medication Ordered: Hydrocodone-APAP PO 5/325 mg (NOW, HIGH ALERT MEDICATION).
--- NOTE | 2016-10-01 21:50 | ED MED RECONCILIATION SUMMARY ---
Patient: LILLI VAZQUEZ Medication Reconciliation Report [facility] VisitID: [id number] [address] [place] [address] 36y, F Registration Date/Time: 10/01/2016 Weight: 54.8 kg Height/Length: 65 in. BMI: 20.1 ALLERGIES: Sulfa Drugs The patient's Home Medications are listed below: THE FOLLOWING MEDICATIONS NEED TO BE RECONCILED: Tramadol HCL Oral The source(s) of the original Home Medication information: patient The following Medications were given to the patient in the Emergency Department: Hydrocodone-APAP [PO] PO 1 tab, administered: 10/01/2016 8:37:00 PM The following Medications were prescribed to the patient: Naproxen 500 mg tablets: take 1 orally every 12 hours as needed for pain. Dispense twenty (20). No refills. -- Whit Gibson, A.R.N.P. Marcus 5 mg / 325 mg tablets: take 1 orally every 6 hours as needed for pain. Dispense five (5). -- Whit Gibson, A.R.N.P.
== END 2016-10-01 20:30 | disposition home or self-care (01) ==
LOC: ED SRH 18:12
DX: S92.124A Nondisplaced fracture of body of right talus, initial encounter for closed fracture (principal); S70.01XA Contusion of right hip, initial encounter; I10 Essential (primary) hypertension; W10.9XXA Fall (on) (from) unspecified stairs and steps, initial encounter; Y93.9 Activity, unspecified; Y92.9 Unspecified place or not applicable; Y99.9 Unspecified external cause status; F17.210 Nicotine dependence, cigarettes, uncomplicated; F12.10 Cannabis abuse, uncomplicated; Z88.2 Allergy status to sulfonamides